=== PATIENT | female | born 1965 | race Caucasian/White ===

== ENCOUNTER 2019-08-19 22:03 | Emergency (ER) | payer BC, SELFPAY ==
[2019-08-19 22:14] VITALS: BP 132/95; PULSE 92; RESP 18; TEMP 36.7; O2SAT 97; BMI 20.7
--- NOTE | 2019-08-19 23:04 | ED_ITS ---
HPI - Skin/Abscess/Foreign Bdy General: Chief complaint: Skin/Abscess/Foreign Body Stated complaint: dental pain Time Seen by Provider: 08/19/19 23:01 History of Present Illness: HPI narrative: Patient complains about abscess to left upper cheek inside of for the last 2 to 3 days. Patient has some tenderness where her dentures come out. Planning on seeing a dentist when she gets back home. Onset (ago): day(s) Associated symptoms: Deny chills, fever(s), nausea or vomiting Review of Systems Const: Denies: fever, chills or body aches Eyes: Denies: change in vision or blurry vision ENMT: Reports: mouth pain and oral sores/lesions; Denies: throat pain or nasal congestion Card: Denies: chest pain or shortness of breath on exertion Resp: Denies: shortness of breath, productive cough or non-productive cough GI: Denies: abdominal pain, nausea or vomiting Musc: Denies: extremity pain Skin/Breast: Denies: rash Neuro: Denies: headache Psych: Denies: anxiety or depression Sadu/Lymph: Denies: easy bruising PFSH ED PFSH: Statuses (acute, chronic, etc) shown below reflect problem list status as previously entered and may not be historically accurate Social History Smoking and tobacco status: current every day smoker Physical Exam Const: COMMON NORMALS: no apparent distress, average body habitus and oriented x3 HENMT: COMMON NORMALS: normocephalic HEAD & SCALP: normal to inspection and normocephalic FACE & SINUS: normal facial exam MOUTH: other (Patient has slight redness and swelling to inside of her cheek on the left side and some redness to her gum on the upper left side is tender) Eye: COMMON NORMALS: conjunctivae normal GENERAL EYE: normal appearance of both eyes CONJUNCTIVA: Yes conjunctivae normal Neck/C-Spine: COMMON NORMALS: no JVD Chest: COMMONS NORMALS: inspection of chest normal Resp: COMMON NORMALS: normal respiratory effort and clear to auscultation bilaterally AUSCULTATION: clear to auscultation bilaterally Cardio: COMMON NORMALS: no JVD, regular rate and regular rhythm RATE: regular rate RHYTHM: regular rhythm GI: COMMON NORMALS: normal to inspection, nondistended, normoactive bowel sounds Extremity: COMMON NORMALS: normal to inspection and full ROM Neuro: COMMON NORMALS: oriented x3 Course Vital Signs: Vital signs: Vital Signs Temperature 98.1 F 08/19/19 22:14 Pulse Rate 92 08/19/19 22:14 Respiratory Rate 18 08/19/19 22:14 Blood Pressure 132/95 08/19/19 22:14 Pulse Oximetry 97 08/19/19 22:14 Discharge Plan Discharge Condition: Stable Prescriptions: No Action gabapentin 300 mg Capsule 300 mg PO TID RF: 0 Coding Level of Care Code ED 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
[2019-08-19] MEDS: clindamycin 150 mg Capsule 300 MG PO (23:28)
--- NOTE | 2019-08-19 23:28 | PC.NURSE ---
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
== END 2019-08-19 23:31 | disposition home or self-care (01) ==
LOC: ER 23:37
PROVIDERS: Emergency Provider Nurse Practitioner Family
DX: K08.89 Other specified disorders of teeth and supporting structures (principal); F17.210 Nicotine dependence, cigarettes, uncomplicated
CPT/HCPCS: 99281